=== PATIENT | female | born 1995 | race Caucasian/White ===

== ENCOUNTER 2024-04-21 13:36 | Emergency (ER) | payer SELFPAY ==
[~2024-04-21] VITALS: Ht 170.2 cm; Wt 68.0 kg
[2024-04-21 13:43] VITALS: O2SAT 99
[2024-04-21] MEDS ORDERED: HYDROCODONE/ACETAMINOPHEN 5/325MG TABLET PO STA (15:01)
[2024-04-21] MEDS ORDERED: NAPR-681 PO (17:42)
[2024-04-21] MEDS ORDERED: HYDR-4001 MT (17:42)
[2024-04-21 17:54] LABS: BASOPHILS % 0.2 % (0.0-2.0); EOSINOPHILS % 0.7 % (0.0-5.0); HEMATOCRIT. 36.3 % (36.0-48.0); HEMOGLOBIN. 12.5 g/dL (12.0-16.0); LYMPHOCYTES % 24.5 % (20.0-50.0); MEAN CORPUSCULAR HEMOGLOBIN 31.5 pg (28.0-32.0); MEAN CORPUSCULAR HGB CONC 34.5 g/dL (31.0-37.0); MEAN CORPUSCULAR VOLUME 91.5 fL (81.0-99.0); MEAN PLATELET VOLUME 7.9 fl (7.4-10.4); MONOCYTES % 4.8 % (2.0-8.0); NEUTROPHILS % 69.8 % (40.0-76.0); PLATELET 334 x1000/uL (130-400); RED BLOOD CELL COUNT 3.96 mill/uL (4.2-5.4); RED CELL DISTRIBUTION WIDTH 13.7 % (11.6-14.6); WHITE BLOOD COUNT 8.7 x1000/uL (4.5-11.0)
[2024-04-21 18:05] LABS: CHLORIDE 106 mEq/L (98-107); POTASSIUM 3.6 mEq/L (3.5-5.1); SODIUM 139 mEq/L (136-145)
[2024-04-21] MEDS: BACITRACIN ZINC OINT UDPKT TOP ONE (18:05)
[2024-04-21 18:06] LABS: CALCIUM 8.9 mg/dL (8.7-10.4); CARBON DIOXIDE 26 mEq/L (21-32)
[2024-04-21] MEDS: KETOROLAC 30MG/ML VIAL IM STA (18:06)
[2024-04-21] MEDS: HYDROCODONE/ACETAMINOPHEN 5/325MG TABLET PO NR (18:06)
[2024-04-21 18:11] LABS: CREATININE 0.7 mg/dL (0.6-1.0); GLUCOSE 93 mg/dL (70-105); UREA NITROGEN BLOOD 12 mg/dL (9-23)
[2024-04-21 18:14] LABS: HCG SCREEN NEGATIVE
[2024-04-21 18:18] VITALS: BP 124/67; PULSE 80; RESP 18; TEMP 98.4
== END 2024-04-21 18:20 | disposition home or self-care (01) ==
LOC: ER 13:36
DX: S50.11XA Contusion of right forearm, initial encounter (principal); S80.01XA Contusion of right knee, initial encounter; S80.211A Abrasion, right knee, initial encounter; R51.9 Headache, unspecified; M79.601 Pain in right arm; V89.2XXA Person injured in unspecified motor-vehicle accident, traffic, initial encounter; Y93.89 Activity, other specified; Y92.89 Other specified places as the place of occurrence of the external cause; Y99.8 Other external cause status
CPT/HCPCS: 99285; 70450; 80048; 81025; 84703; 85025; 36415; 72110; 73080; 73090; 73110; 73562; 96372; J1885; A4565